=== PATIENT | male | born 1950 | race Caucasian/White ===

== ENCOUNTER 2019-07-01 07:58 | Day surgery (SDC) | payer MEDICARE ==
[~2019-07-01] VITALS: Ht 170.2 cm; Wt 81.6 kg
[~2019-07-01 07:58] MED LIST: ADAL40PEN SC; ALLO300 PO; AMLO10 PO; ASPI81CH PO; ATOR10 PO; ATOR40TA PO; Amlodipine Besyl5 MG PO; Aspirin EC81 MG PO; CARV25 PO; CENTRUM SILVER1 EAC4 PO; ETAN50I SC; FLAX OIL1000 MG PO; FURO40 PO; Ferrous Sulfat325 M2 PO; LISI20 PO; Labetalol HCl300 MG PO; PRED5 PO; Prilosec Otc20 MG PO; SODBIC650 PO; SPIR25 PO; TURMERIC500 M2 PO; VITAMIN D-32000 UNIT PO; Vitamin D2000 UNIT PO; ZESTRIL40 MG PO; ZYRTEC10 M1 PO
--- NOTE | 2019-07-01 10:37 | NUR ---
07/01/19 Paige Atkins USED.
--- NOTE | 2019-07-01 11:24 | NUR ---
07/01/19 1124 Paige Rodriguez PT. GROGGY. PT. ENC. TO TAKE DEEP BREATHS. PT VERBALIZES HAVING A LITTLE SORE THROAT. PT. INSTRUCTED THAT HE MAY HAVE A SORE THROAT FOR A DAY OR TWO & IF BOTHERSOME TO EAT SOFT FOODS OTHERWISE EAT & DRINK WHAT HE WANTS. PT. DRINKING CRANBERRY JUICE. PT. DENIES ANY OTHER PAIN. PT. STATES "SORE ASS." PER PT. WAS C/O SORE BOTTOM ON HIS WAY IN TO [facility].
--- NOTE | 2019-07-01 13:29 | NUR ---
07/01/19 1329 Paige Rodriguez [id number] ML GARY IN PREOP.
== END 2019-07-01 11:45 | disposition home or self-care (01) ==
LOC: ORSCSDS 07:58
PROVIDERS: Surgery
PROC: 0DBH8ZX Excision of Cecum, Via Natural or Artificial Opening Endoscopic, Diagnostic (ICD-10-PCS; principal; 2019-07-01 09:15)
PROC: 0DB68ZX Excision of Stomach, Via Natural or Artificial Opening Endoscopic, Diagnostic (ICD-10-PCS; principal; 2019-07-01 09:15)
PROC: 0DBL8ZX Excision of Transverse Colon, Via Natural or Artificial Opening Endoscopic, Diagnostic (ICD-10-PCS; principal; 2019-07-01 09:15)
PROC: 0DBP8ZX Excision of Rectum, Via Natural or Artificial Opening Endoscopic, Diagnostic (ICD-10-PCS; principal; 2019-07-01 09:15)
PROC: 0DB58ZX Excision of Esophagus, Via Natural or Artificial Opening Endoscopic, Diagnostic (ICD-10-PCS; principal; 2019-07-01 09:15)
PROC: 0DBK8ZX Excision of Ascending Colon, Via Natural or Artificial Opening Endoscopic, Diagnostic (ICD-10-PCS; principal; 2019-07-01 09:15)
DX: K21.9 Gastro-esophageal reflux disease without esophagitis (principal); Z86.010 Personal history of colon polyps; K44.9 Diaphragmatic hernia without obstruction or gangrene; K31.7 Polyp of stomach and duodenum; Z12.11 Encounter for screening for malignant neoplasm of colon; D12.0 Benign neoplasm of cecum; D12.2 Benign neoplasm of ascending colon; D12.3 Benign neoplasm of transverse colon; D12.8 Benign neoplasm of rectum; K57.30 Diverticulosis of large intestine without perforation or abscess without bleeding; E78.5 Hyperlipidemia, unspecified; Z79.899 Other long term (current) drug therapy; I12.9 Hypertensive chronic kidney disease with stage 1 through stage 4 chronic kidney disease, or unspecified chronic kidney disease; N18.4 Chronic kidney disease, stage 4 (severe)
CPT/HCPCS: 88305; 88342; J2704; J7120

== ENCOUNTER 2020-03-17 06:07 | Day surgery (SDC) | payer MEDICARE ==
[~2020-03-17] VITALS: Ht 175.3 cm; Wt 75.0 kg
[2020-03-17] MEDS ORDERED: CARV25 PO (06:41)
--- NOTE | 2020-03-17 07:22 | NUR ---
Ambulatory in Day Surgery. Surgical site prepped with 2% Chlorhexidine cloth wipe. Lungs clear T/O to Auscultation. History, Chart, Medications and Allergies reviewed before start of procedure.Patient confirms NPO status and agrees with scheduled surgery. Pre-Op teaching done. Pt verbalizes understanding. Patient States Post-Procedure ride home has been arranged.
--- NOTE | 2020-03-17 13:04 | NUR ---
PT ARRIVED TO UNIT AT APROX 1220 FROM PACU. PT AWAKENS TO VERBAL STIMULI BUT QUICKLEY FALLS BACK ASLEEP. LAP SITES X'S 5 C/D/I. APPEARS TO BE RESTING COMFORTABLY AT THIS TIME.
--- NOTE | 2020-03-17 18:35 | NUR ---
SHIFT SUMMARY PT POD 0 LAP HIATAL HERNIA REPAIR. 5 LAP SITES C/D/I DERMABONDED OPEN TO AIR. PAIN MGD PER EMAR. HTN-HOPITALIST MANAGING PER EMAR. ADVANCED TO ICE CHIPS FOR NOC.
[2020-03-18 04:07] LABS: Hematocrit 37.8 % (37.0-53.0); Hemoglobin 12.3 g/dL (13.5-17.5)
[2020-03-18 04:24] LABS: Albumin, Blood 3.3 g/dL (3.4-5.0); Anion Gap 11 mmol/L (6-16); Blood Urea Nitrogen 37 mg/dL (8-24); Bun/Creatinine Ratio 15.5 (12.0-20.0); CO2, Blood 18 mmol/L (21-32); Calcium, Blood 8.9 mg/dL (8.5-10.1); Chloride, Blood 109 mmol/L (98-108); Creatinine, Blood 2.38 mg/dL (0.60-1.20); Glomerular Filtration Rate 29 (60-); Glucose, Blood 97 mg/dL (70-99); Phosphorus, Blood 3.5 mg/dL (2.5-4.9); Potassium, Blood 4.3 mmol/L (3.5-5.5); Sodium, Blood 138 mmol/L (136-145)
--- NOTE | 2020-03-18 05:06 | NUR ---
PATIENT HAS BEEN UNABLE TO GET ANY SLEEP TONIGHT DUE TO THE FREQUENCY OF VOIDING. HE IS UP TO [facility] INDEPENDENTLY. PATIENT HAS NO COMPLAINTS OF ACUTE ABDOMINAL PAIN. HE DOES HAVE CHRONIC ARTHRITIS PAIN THAT HE DOES NOT WISH TO BE MEDICATED FOR. HIS LUNGS ARE CLEAR ON ROOM. PT WITH ELEVATED BLOOD PRESSURE THIS AM. HE IS NOW UP TO A RECLINER FOR COMFORT. 5 LAP SITES ARE CLEAR AND FREE OF BLEEDING. NO REPORT OF PASSING GAS. NO ACUTE CHANGES. CALL LIGHT IN REACH AND USED APPROPRIATELE.
[2020-03-18] MEDS ORDERED: Norco 5-325 Ta1 EACH PO (12:06)
--- NOTE | 2020-03-18 12:37 | NUR ---
DISCHARGE PT DISCHARGED [facility] FROM UNIT AT APROX 1230. PT GIVEN WRITTEN AND VERBAL DISCHARGE INSTRUCTIONS AND VERBALIZED UNDERSTANDING OF THESE INSTRUCTIONS. IV REMOVED, PT TOLERATED WELL. WRITTEN RX FOR PAIN MEDICATION GIVEN TO PT. WHEELCHAIR TO CAR.
== END 2020-03-18 12:33 | disposition home or self-care (01) ==
LOC: ORSCMMR 06:07 → SURS 12:27 → ORSCMMR 13:00 → SURS 03-18 12:33 → ORSCMMR 03-18 12:33
PROVIDERS: Surgery
PROC: 0DV44ZZ Restriction of Esophagogastric Junction, Percutaneous Endoscopic Approach (ICD-10-PCS; principal; 2020-03-17 07:30)
DX: K44.9 Diaphragmatic hernia without obstruction or gangrene (principal); I10 Essential (primary) hypertension; Z79.899 Other long term (current) drug therapy
CPT/HCPCS: 36415; 80069; 85014; 85018; J0330; J0360; J0690; J1644; J2250; J2370; J2405; J2704; J2710; J3010; J3480; J7030

== ENCOUNTER 2020-12-13 08:07 | Day surgery (SDC) | payer MEDICARE ==
[~2020-12-13] VITALS: Ht 175.3 cm; Wt 73.6 kg
[~2020-12-13 08:07] MED LIST changes: +Norco 5-325 Ta1 EACH PO
--- NOTE | 2020-12-13 08:50 | NUR ---
Ambulatory in Day Surgery History, Chart, Medications and Allergies reviewed before start of procedure. Lungs clear T/O to Auscultation. Patient confirms NPO status and agrees with scheduled surgery. Patient reports completing Chlorhexadine shower X2 prior to admission to hospital. PT REPORTS "LABILE BP", HX OF HTN PRIOR TO SURGERIES, SAME PREVIOUS VISITS.
--- NOTE | 2020-12-13 12:31 | NUR ---
PT ABVD SOFT, SLIGHTLY TENDER, INCISION SITE AT UMBILICUS. DERMABOND, NO OOZING NOTED. PT DECLINES PAIN MEDICATION. ALERT AND ORIENTED, TOLERATING PO INTAKE WITH ICE CHIPS. DECLINES FLUIDS OR FOOD.
--- NOTE | 2020-12-13 12:55 | NUR ---
PT ABLE TO DRESS WITH MINIMAL ASSISTANCE. IV DC'D, DRESSING APPLIED. RIDE HOME OUTSIDE WAITING.
== END 2020-12-13 22:57 | disposition home or self-care (01) ==
LOC: ORSCMMR 08:07 → ORD 09:15 → ORSCMMR 09:15
PROVIDERS: Surgery
PROC: 0WUF0JZ Supplement Abdominal Wall with Synthetic Substitute, Open Approach (ICD-10-PCS; principal; 2020-12-13 10:00)
DX: K43.2 Incisional hernia without obstruction or gangrene (principal); E78.5 Hyperlipidemia, unspecified; I12.9 Hypertensive chronic kidney disease with stage 1 through stage 4 chronic kidney disease, or unspecified chronic kidney disease; N18.9 Chronic kidney disease, unspecified; M06.9 Rheumatoid arthritis, unspecified; N25.81 Secondary hyperparathyroidism of renal origin; L40.50 Arthropathic psoriasis, unspecified; Z79.899 Other long term (current) drug therapy
CPT/HCPCS: C1781; J0690; J1100; J2250; J2370; J2405; J2704; J2710; J3010; J7120

== ENCOUNTER → 2021-01-04 | Outpatient (CLI) | payer MEDICARE ==
[2021-01-04 14:21] LABS: Creatinine, Urine Random 50.5 mg/dL (27.00-270.00); Protein, Urine Random 59.3 mg/dL (0.0-11.9)
== END | disposition home or self-care (01) ==
LOC: LAB 08:58 → LAB SHORT 08:58
PROVIDERS: Internal Medicine
DX: N18.4 Chronic kidney disease, stage 4 (severe) (principal); E55.9 Vitamin D deficiency, unspecified
CPT/HCPCS: 82570; 84156

== ENCOUNTER 2021-09-29 07:01 | Day surgery (SDC) | payer MEDICARE ==
[~2021-09-29] VITALS: Ht 170.2 cm; Wt 74.1 kg
[~2021-09-29 07:01] MED LIST changes: +AMLO5 PO; +Aspir 8181 MG PO; +CLOBETASOL EMOL15 G1 TOP; +HYDCHL25 PO
--- NOTE | 2021-09-29 08:08 | NUR ---
History, Chart, Medications and Allergies reviewed before start of procedure. Lungs clear T/O to Auscultation. Patient confirms NPO status and agrees with scheduled surgery. Pre-Op teaching done. Pt verbalizes understanding. Patient States Post-Procedure ride home has been arranged. Patient states colon prep results clear.
--- NOTE | 2021-09-29 09:03 | NUR ---
RECIEVED PATIENT AND REPORT VSS. GIVEN JUICE TO DRINK AND GAVE COFFEE TO DRINK
--- NOTE | 2021-09-29 09:23 | NUR ---
Discharge instructions reviewed with patient. Patient verbalizes understanding. Copy given to patient to take home. Patient States Post-Procedure ride home has been arranged. Discharged via wheelchair to private car for ride home.
--- NOTE | 2021-09-29 14:29 | NUR ---
09/29/21 1429 Suad Rubalcava History, Chart, Medications and Allergies reviewed before start of procedure. Patient confirms NPO status and agrees with scheduled surgery. 3-LEAD EKG REVIEWED WITH PHYSICIAN PRIOR TO START OF PROCEDURE. MONITOR INTACT WITH CONTINUOUS PULSE OXIMETRY AND INTERMITTENT BP. PATIENT DETERMINED TO BE ASA APPROPRIATE FOR PROPOFOL SEDATION PRIOR TO START OF PROCEDURE BY .
== END 2021-09-29 09:25 | disposition home or self-care (01) ==
LOC: ORSCMMR 07:01 → ORSCSDS 08:00 → ORSCMMR 09:25 → ORSCSDS 13:45 → ORSCMMR 23:06
PROVIDERS: Surgery
PROC: 0DBK8ZX Excision of Ascending Colon, Via Natural or Artificial Opening Endoscopic, Diagnostic (ICD-10-PCS; principal; 2021-09-29 08:00)
PROC: 0DBL8ZX Excision of Transverse Colon, Via Natural or Artificial Opening Endoscopic, Diagnostic (ICD-10-PCS; principal; 2021-09-29 08:00)
DX: Z12.11 Encounter for screening for malignant neoplasm of colon (principal); Z86.010 Personal history of colon polyps; D12.2 Benign neoplasm of ascending colon; D12.3 Benign neoplasm of transverse colon; K57.30 Diverticulosis of large intestine without perforation or abscess without bleeding; D64.9 Anemia, unspecified; E78.5 Hyperlipidemia, unspecified; E55.9 Vitamin D deficiency, unspecified; Z79.82 Long term (current) use of aspirin; Z79.899 Other long term (current) drug therapy
CPT/HCPCS: 88305; J2250; J2704; J3010; J7120

== ENCOUNTER → 2021-11-11 | Outpatient (CLI) | payer MEDICARE ==
[2021-11-11 10:09] LABS: Source, Urine Clean Catch
[2021-11-11 10:57] LABS: Appearance, Urine Clear (Clear); Bilirubin, Urine Neg (Neg); Blood, Urine Neg (Neg); Color, Urine Yellow (P-Yellow); Glucose Qualitative, Urine Neg (Neg); Ketones, Urine Neg (Neg); Leukocyte Esterase, Urine Neg (Neg); Nitrite, Urine Neg (Neg); Protein, Urine 2+ (Neg); Specific Gravity, Urine 1.015 (1.003-1.022); Urobilinogen, Urine NORM (Normal)
[2021-11-11 11:09] LABS: Creatinine, Urine Random 53.8 mg/dL (27.00-270.00); Protein, Urine Random 38.2 mg/dL (0.0-11.9); Protein/Creat Ratio, Ur Random 0.7
[2021-11-11 11:32] LABS: Bacteria Few /hpf; Red Blood Cells, Urine 0-2 /hpf (0-2); Squamous Epithelial Cells Rare /hpf (Few); White Blood Cells, Urine 0-2 /hpf (0-5)
== END ==
LOC: LAB SHORT 10:06
PROVIDERS: Internal Medicine Nephrology
DX: N18.4 Chronic kidney disease, stage 4 (severe) (principal)
CPT/HCPCS: 81001; 82570; 84156

== ENCOUNTER → 2022-01-06 | Outpatient (CLI) | payer MEDICARE ==
[2022-01-06 11:07] LABS: Creatinine, Urine Random 50.3 mg/dL (27.00-270.00); Protein, Urine Random 37.3 mg/dL (0.0-11.9); Protein/Creat Ratio, Ur Random 0.7
== END ==
LOC: LAB SHORT 09:15
PROVIDERS: Internal Medicine Nephrology
DX: N18.4 Chronic kidney disease, stage 4 (severe) (principal); Z79.82 Long term (current) use of aspirin
CPT/HCPCS: 82570; 84156

== ENCOUNTER 2022-09-01 07:47 | Inpatient (IN) | payer MEDICARE ==
[~2022-09-01] VITALS: Ht 175.3 cm; Wt 70.5 kg
[2022-09-01 08:39] LABS: BASOPHILS ABSOLUTE AUTO 0.04 K/mm3 (0.00-0.23); BASOPHILS PERCENT AUTO 1 % (0-2); EOSINOPHILS ABSOLUTE AUTO 0.19 K/mm3 (0.00-0.68); EOSINOPHILS PERCENT AUTO 3 % (0-6); Hematocrit 34.8 % (37.0-53.0); Hemoglobin 12.8 g/dL (13.5-17.5); IMMATURE GRAN ABSOLUTE AUTO 0.03 K/mm3 (0.00-0.10); IMMATURE GRAN PERCENT AUTO 0 % (0-1); LYMPHOCYTES ABSOLUTE AUTO 1.23 K/mm3 (0.84-5.20); LYMPHOCYTES PERCENT AUTO 17 % (21-46); MONOCYTES ABSOLUTE AUTO 0.85 K/mm3 (0.16-1.47); MONOCYTES PERCENT AUTO 12 % (4-13); Mean Corpuscular HGB Conc 36.8 g/dL (31.5-36.5); Mean Corpuscular Volume 87 fL (80-100); Mean Platelet Volume 12.2 fL (9.1-12.4); NEUTROPHILS ABSOLUTE AUTO 5.05 K/mm3 (1.96-9.15); NEUTROPHILS PERCENT AUTO 68 % (41-73); Platelet Count 191 K/mm3 (150-400); RDW Coefficient Variation 13.3 % (11.7-14.2); RDW Standard Deviation 42.2 fL (35.1-46.3); White Blood Cell Count 7.39 K/mm3 (4.00-11.30)
[2022-09-01 09:00] LABS: Albumin, Blood 3.4 g/dL (3.4-5.0); Bilirubin, Total 0.7 mg/dL (0.1-1.0); Bun/Creatinine Ratio 13.5 (12.0-20.0); Calcium, Blood 8.9 mg/dL (8.5-10.1); Creatinine, Blood 2.07 mg/dL (0.60-1.20); Globulin, Blood 3.4 g/dL (2.2-4.0); Potassium, Blood 4.6 mmol/L (3.5-5.5); Total Protein, Blood 6.8 g/dL (6.4-8.2)
[2022-09-01] MEDS ORDERED: ALLO300 PO (09:51)
[2022-09-01] MEDS ORDERED: AMLO10 PO (09:53)
[2022-09-01] MEDS ORDERED: ASPIR 8181 M1 PO (09:54)
[2022-09-01] MEDS ORDERED: ATORVASTATIN CA80 M1 PO (09:55)
[2022-09-01] MEDS ORDERED: COREG25 MG PO (09:56)
[2022-09-01] MEDS ORDERED: ADALAT CC30 M1 PO (09:58)
--- NOTE | 2022-09-01 14:07 | NUR ---
ASSUMED CARE: PT ARRIVED TO ROOM VIA WHEEL CHAIR BY ED STAFF. SKIN ASSESSMENT DONE WITH BUDDY PRIDE. PT DECLINED UNDERWEAR REMOVED BUT WAS ABLE TO CHECK GROIN AND COCCYX. PT REQUESTED TO KEEP HOME CLOTHES ON. NSR ON TELE WITH HR IN 70S. PT AWARE OF DR CONLEY'S ORDER FOR FLUID RESTRICTION. DISCUSSED WITH MECHANICAL PLANNER URINE SAMPLE AND 24 HOUR URINE ORDERS. CALL LIGHT IN REACH. PT AWARE TO CALL FOR ASSISTANCE. NO ACUTE NEEDS AT THIS TIME.
--- NOTE | 2022-09-01 18:24 | NUR ---
SHIFT SUMMARY: PT VOIDED ONCE THIS SHIFT SINCE ARRIVAL FROM THE ED. 24 HOUR URINE ORDERED FOR PT WITH SIGNS IN PLACE TO PREVENT DUMPING OF SAMPLE. CALL TO DR NARVAEZ FOR MEDICATION FOR HEART BURN, TYLENOL AND SLEEP AID. PT GETTING SODIUM CHECKED EVERY [address] CONLEY AWARE OF LAST SODIUM AND GAVE STANDING ORDER ON HOW TO ADJUST NS INFUSION. NO ACUTE NEEDS OR CONCERNS AT THIS TIME.
[2022-09-02 05:42] LABS: BASOPHILS ABSOLUTE AUTO 0.02 K/mm3 (0.00-0.23); BASOPHILS PERCENT AUTO 0 % (0-2); EOSINOPHILS ABSOLUTE AUTO 0.13 K/mm3 (0.00-0.68); EOSINOPHILS PERCENT AUTO 2 % (0-6); Hematocrit 31.3 % (37.0-53.0); Hemoglobin 11.3 g/dL (13.5-17.5); IMMATURE GRAN ABSOLUTE AUTO 0.03 K/mm3 (0.00-0.10); IMMATURE GRAN PERCENT AUTO 1 % (0-1); LYMPHOCYTES ABSOLUTE AUTO 1.06 K/mm3 (0.84-5.20); LYMPHOCYTES PERCENT AUTO 20 % (21-46); MONOCYTES ABSOLUTE AUTO 0.71 K/mm3 (0.16-1.47); MONOCYTES PERCENT AUTO 13 % (4-13); Mean Corpuscular HGB 32.1 pg (26.0-34.0); Mean Corpuscular HGB Conc 36.1 g/dL (31.5-36.5); Mean Corpuscular Volume 89 fL (80-100); Mean Platelet Volume 11.6 fL (9.1-12.4); NEUTROPHILS ABSOLUTE AUTO 3.49 K/mm3 (1.96-9.15); NEUTROPHILS PERCENT AUTO 64 % (41-73); Platelet Count 105 K/mm3 (150-400); RDW Coefficient Variation 13.3 % (11.7-14.2); RDW Standard Deviation 43.6 fL (35.1-46.3); Red Blood Cell Count 3.52 M/mm3 (4.30-5.90); White Blood Cell Count 5.44 K/mm3 (4.00-11.30)
[2022-09-02 06:18] LABS: Bun/Creatinine Ratio 14.9 (12.0-20.0); Calcium, Blood 8.7 mg/dL (8.5-10.1); Creatinine, Blood 2.21 mg/dL (0.60-1.20); Potassium, Blood 4.1 mmol/L (3.5-5.5)
--- NOTE | 2022-09-02 07:25 | NUR ---
SHIFT SUMMARY; PT WITH NO ACUTE CHANGES OVERNIGHT. PT REMAINED ON 1000ML FLUID RESTRICTION. 24 HOUR URINE SAMPLE IS STILL TAKING PLACE UNTIL 1632 TODAY, THE ORANGE CLLECTION URINAL REMAINS IN PLACE IN THE PTS BATHROOM ON ICE. PTS SODIUM IS UP TO 121 THIS AM. PT CURRENTLY RESTING IN BED WITH THE BED IN THE LOWEST POSITION AND THE CALL LIGHT AT THE PTS BEDSIDE.
--- NOTE | 2022-09-02 17:20 | NUR ---
SUMMARY NO ACUTE CHANGES T/O SHIFT. PT GETTING UP INDEPENDENTLY TO RESTROOM AND AMBULATING IN ROOM FROM BED TO CHAIR. 24 HR URINE COLLECTED PER ORDERS. CALL LIGHT IN REACH.
[2022-09-02 18:03] LABS: Creatinine Urine 35.1 mg/dL (27.00-270.00)
--- NOTE | 2022-09-03 04:27 | NUR ---
SHIFT SUMMARY; NO ACUTE MEDICAL CHANGES THROUGHOUT THE NIGHT. THE PT REMAINS ON A 1000ML FLUID RESTRICTION. THE PT REMAINS INDEPENDENT IN THE ROOM. TELE REMAINS IN PLACE, THE PT HAS BEEN NSR IN THE 60'S THROUGHOUT THE NIGHT. THE PT DOES COMPLAIN OF SOME STIFFNESS R/T GOUT AND ARTHRITIS. PT ATTRIBUTES IT TO SLEEPING IN A HOSPITAL BED RATHER THAN HIS HOME BED/RECLINER. THE PT IS CURRENTLY RESTING IN BED WITH THE BED IN THE LOWEST POSITION AND THE CALL LIGHT AT BEDSIDE.
[2022-09-03 06:48] LABS: Bun/Creatinine Ratio 15.1 (12.0-20.0); Calcium, Blood 8.8 mg/dL (8.5-10.1); Creatinine, Blood 2.39 mg/dL (0.60-1.20); Potassium, Blood 3.9 mmol/L (3.5-5.5)
[2022-09-03] MEDS ORDERED: UREA PO (15:31)
--- NOTE | 2022-09-03 15:56 | NUR ---
DISCHARGE SUMMARY PATIENT ALERT AND ORIENTED AND ANXIOUS THROUGHOUT SHIFT. TOLERATING RENAL DIET AND FLUID RESTRICTION OF 1000 MLS. INDEPENDENT IN ROOM. ASAEL ON TELE IN THE 60S. HIGH BP CONTROLLED WITH MEDS. SEEN BY SUSANNAH SULLIVAN AND NEPHROLOGY. SODIUM CONTINUES TO BE LOW BUT STABLE. DISCHARGE ORDER GIVEN. DISCHARGE EDUCATION GIVEN ON NEW MEDS, DIET, FOLLOW UP LABS, AND FOLLOW UP APPTS. IV DC'D WNL. PATIENT LEFT UNIT AT 1600 VIA WHEELCHAIR FOR HOME WITH FRIEND.
== END 2022-09-03 16:01 | disposition home or self-care (01) | DRG 641 ==
LOC: ER 07:47 → MEDS 09:47
PROVIDERS: Emergency Medicine; Internal Medicine Nephrology; ADMIT Internal Medicine
DX: E87.1 Hypo-osmolality and hyponatremia (principal); I50.30 Unspecified diastolic (congestive) heart failure; I13.0 Hypertensive heart and chronic kidney disease with heart failure and stage 1 through stage 4 chronic kidney disease, or unspecified chronic kidney disease; I42.0 Dilated cardiomyopathy; N18.4 Chronic kidney disease, stage 4 (severe); D63.1 Anemia in chronic kidney disease; N40.0 Benign prostatic hyperplasia without lower urinary tract symptoms; I65.29 Occlusion and stenosis of unspecified carotid artery; M10.9 Gout, unspecified; L40.50 Arthropathic psoriasis, unspecified; E78.00 Pure hypercholesterolemia, unspecified; Z98.890 Other specified postprocedural states; Z79.899 Other long term (current) drug therapy; Z88.8 Allergy status to other drugs, medicaments and biological substances; Z79.82 Long term (current) use of aspirin; Z79.811 Long term (current) use of aromatase inhibitors; Z79.02 Long term (current) use of antithrombotics/antiplatelets; Z98.49 Cataract extraction status, unspecified eye; Z92.25 Personal history of immunosuppression therapy
CPT/HCPCS: 36415; 80048; 80053; 81050; 82570; 83935; 84295; 84300; 84443; 84540; 85025; 93005; 93010; 99285-25; A9270; J1644; J7030; J7040

== ENCOUNTER 2023-03-22 09:37 | Inpatient (IN) | payer MEDICARE ==
[~2023-03-22] VITALS: Ht 175.3 cm; Wt 69.3 kg
[~2023-03-22 09:37] MED LIST changes: -ADAL40PEN SC; +ADALAT CC30 M1 PO; +ASPIR 8181 M1 PO; +ATORVASTATIN CA80 M1 PO; +COREG25 MG PO; +HUMIRA40 MG/0.2 SC; +THERA-D2000 UNIT PO; +UREA PO; -VITAMIN D-32000 UNIT PO
[2023-03-22 10:47] LABS: Albumin, Blood 2.9 g/dL (3.4-5.0); Albumin/Globulin Ratio 0.7 (0.8-1.8); Bilirubin, Total 0.4 mg/dL (0.1-1.0); Bun/Creatinine Ratio 21.8 (12.0-20.0); Calcium, Blood 9.5 mg/dL (8.5-10.1); Creatinine, Blood 3.67 mg/dL (0.60-1.20); Potassium, Blood 4.7 mmol/L (3.5-5.5); Total Protein, Blood 6.9 g/dL (6.4-8.2)
[2023-03-22 10:59] LABS: Percent Saturation 4.7 % (20.0-50.0)
[2023-03-22 11:11] LABS: International Normalized Ratio 1.07; Prothrombin Time Results 11.2 Sec (9.7-11.5)
[2023-03-22 11:14] LABS: Base Excess Venous -6.3 mmol/L; Bicarbonate Venous 19.4 mmol/L (24.0-30.0); PCO2 Venous 38.4 mmHg (38-42); pH Blood Venous 7.32 (7.34-7.37)
[2023-03-22 11:42] LABS: BASOPHILS ABSOLUTE AUTO 0.04 K/mm3 (0.00-0.23); BASOPHILS PERCENT AUTO 0 % (0-2); EOSINOPHILS PERCENT AUTO 3 % (0-6); Hematocrit 21.9 % (37.0-53.0); Hemoglobin 7.1 g/dL (13.5-17.5); IMMATURE GRAN ABSOLUTE AUTO 0.03 K/mm3 (0.00-0.10); IMMATURE GRAN PERCENT AUTO 0 % (0-1); LYMPHOCYTES ABSOLUTE AUTO 1.48 K/mm3 (0.84-5.20); LYMPHOCYTES PERCENT AUTO 15 % (21-46); MONOCYTES ABSOLUTE AUTO 1.61 K/mm3 (0.16-1.47); MONOCYTES PERCENT AUTO 16 % (4-13); Mean Corpuscular HGB 30.9 pg (26.0-34.0); Mean Corpuscular HGB Conc 32.4 g/dL (31.5-36.5); Mean Corpuscular Volume 95 fL (80-100); NEUTROPHILS ABSOLUTE AUTO 6.66 K/mm3 (1.96-9.15); NEUTROPHILS PERCENT AUTO 66 % (41-73); Platelet Count 133 K/mm3 (150-400); RDW Coefficient Variation 14.5 % (11.7-14.2); White Blood Cell Count 10.12 K/mm3 (4.00-11.30)
[2023-03-22] MEDS ORDERED: ALLO300 PO (14:22)
[2023-03-22] MEDS ORDERED: CALC.25 PO (14:22)
[2023-03-22] MEDS ORDERED: BETASEPT118 M1 PO (14:23)
[2023-03-22 16:08] VITALS: BP 162/66
[2023-03-22 17:36] LABS: Hematocrit 27.3 % (37.0-53.0); Hemoglobin 9.2 g/dL (13.5-17.5)
[2023-03-22 18:40] LABS: Source, Urine Voided
--- NOTE | 2023-03-22 19:49 | NUR ---
LATE ENTRY PT ADMIT FROM ER. ONE PERSON ASSIST WITH WALKER TO THE BATHROOM. APPROPRIATE. ABLE TO EXPRESS NEEDS. PER MD, STAY ON CLEAR LIQUID DIET UNTIL FURTHER NOTICE. ALERT AND ORIENTED X4.
[2023-03-22 19:52] LABS: Bilirubin, Urine Neg (Neg); Blood, Urine 1+ (Neg); Color, Urine Yellow (P-Yellow); Glucose Qualitative, Urine Neg (Neg); Ketones, Urine Neg (Neg); Leukocyte Esterase, Urine Neg (Neg); Nitrite, Urine Neg (Neg); Protein, Urine 3+ (Neg); Specific Gravity, Urine 1.015 (1.003-1.022); Urobilinogen, Urine NORM (Normal)
[2023-03-22 20:17] LABS: Appearance, Urine Hazy (Clear)
[2023-03-22 20:19] LABS: Amorphous Light (0-Heavy); Bacteria Mod /hpf; Hyaline Casts 0-2 /lpf (0-2); Mucus Light (0-Heavy); Red Blood Cells, Urine 0-2 /hpf (0-2); Squamous Epithelial Cells Rare /hpf (Few); White Blood Cells, Urine 0-2 /hpf (0-5)
[2023-03-22 20:51] VITALS: BP 137/66
[2023-03-23] VITALS (21 sets, daily range): BP systolic 84–187; BP diastolic 53–77
[2023-03-23 02:10] LABS: Albumin, Blood 2.7 g/dL (3.4-5.0); Albumin/Globulin Ratio 0.8 (0.8-1.8); Bilirubin, Total 0.8 mg/dL (0.1-1.0); Bun/Creatinine Ratio 21.2 (12.0-20.0); Calcium, Blood 8.9 mg/dL (8.5-10.1); Creatinine, Blood 3.54 mg/dL (0.60-1.20); Globulin, Blood 3.5 g/dL (2.2-4.0); Potassium, Blood 4.2 mmol/L (3.5-5.5); Total Protein, Blood 6.2 g/dL (6.4-8.2)
[2023-03-23 02:14] LABS: BASOPHILS ABSOLUTE AUTO 0.04 K/mm3 (0.00-0.23); BASOPHILS PERCENT AUTO 0 % (0-2); EOSINOPHILS ABSOLUTE AUTO 0.29 K/mm3 (0.00-0.68); EOSINOPHILS PERCENT AUTO 3 % (0-6); Hematocrit 26.2 % (37.0-53.0); Hemoglobin 8.9 g/dL (13.5-17.5); IMMATURE GRAN ABSOLUTE AUTO 0.09 K/mm3 (0.00-0.10); IMMATURE GRAN PERCENT AUTO 1 % (0-1); LYMPHOCYTES ABSOLUTE AUTO 1.45 K/mm3 (0.84-5.20); LYMPHOCYTES PERCENT AUTO 15 % (21-46); MONOCYTES PERCENT AUTO 17 % (4-13); Mean Corpuscular HGB 31.2 pg (26.0-34.0); Mean Corpuscular Volume 92 fL (80-100); Mean Platelet Volume 12.9 fL (9.1-12.4); NEUTROPHILS PERCENT AUTO 64 % (41-73); NRBC ABSOLUTE 0.02 K/mm3 (0.00-0.02); NRBC Auto 0.2 /100 WBC (0.0-0.2); Platelet Count 137 K/mm3 (150-400); RDW Coefficient Variation 13.9 % (11.7-14.2); RDW Standard Deviation 46.9 fL (35.1-46.3); Red Blood Cell Count 2.85 M/mm3 (4.30-5.90); White Blood Cell Count 9.87 K/mm3 (4.00-11.30)
--- NOTE | 2023-03-23 04:20 | NUR ---
SHIFT SUMMARY ADMITTED FOR UPPER GI BLEED. FULL CODE. UPPER ENDOSCOPY PLANNED FOR THIS AFTERNOON. GI CONSULT IS DR. CLEMONS. PT HAS BEEN ALLOWED WATER ONLY, ORDERED. AT 1200 HOURS HE WILL BE NPO FOR PROCEDURE. HE RECEIVED ONE UNIT OF PRBC'S. HE IS A&O X4, ON RA, CONTINENT, INDEPENDENT W/FWW - BRP. BLOOD CX'S HAVE BEEN COLLECTED, AWAITING RESULTS. HE REPORTED TARRY STOOLS AT HOME. ABDOMINAL ULTRASOUND PERFORMED THIS SHIFT. HX: CKD 4. MX FOR ANEMIA. IV IRON INFUSED THIS SHIFT.
[2023-03-23 09:22] LABS: Hematocrit 27.4 % (37.0-53.0); Hemoglobin 9.3 g/dL (13.5-17.5)
--- NOTE | 2023-03-23 15:19 | NUR ---
PT BROUGHT FROM FLOOR TO DAY SURGERY FOR PROCEDURE.
--- NOTE | 2023-03-23 15:31 | NUR ---
03/23/23 1531 Lexie Rajput History, Chart, Medications and Allergies reviewed before start of procedure. 3-LEAD EKG REVIEWED WITH PHYSICIAN PRIOR TO START OF PROCEDURE. O2 VIA POM AT 10L INTACT THROUGHOUT SEDATION/PROCEDURE. MONITOR INTACT WITH CONTINUOUS PULSE OXIMETRY, CONTINUOUS END TITAL CO2, AND INTERMITTENT BLOOD PRESSURE. PATIENT DETERMINED TO BE ASA APPROPRIATE FOR PROPOFOL SEDATION PRIOR TO START OF PROCEDURE BY .
--- NOTE | 2023-03-23 15:44 | NUR ---
PT HAS 20G IV TO RIGHT AC THAT FLUSHES WELL AND FLOWS TO GRAVITY.
[2023-03-23 17:41] LABS: Hematocrit 28.8 % (37.0-53.0); Hemoglobin 9.7 g/dL (13.5-17.5)
--- NOTE | 2023-03-23 20:10 | NUR ---
SHIFT SUMMARY PT IS ALERT AND ORIENTED X4, INDEPENDENT IN THE ROOM, R/A, EGD TODAY. RESULTS NEGATIVE. NO ACUTE CHANGES THIS SHIFT. NEPHRO MD AT PT BEDSIDE TO DISCUSS KIDNEY FUNCTION. PLAN IS TO DISCHARGE TOMORROW AFTER LAB RESULTS.
--- NOTE | 2023-03-24 04:26 | NUR ---
SHIFT SUMMARY 73 YR M ADMITTED ON 03/23/23 FOR POSSIBLE GI BLEED. FULL CODE. NO ACUTE CHANGES THIS SHIFT. PT IS A&O X 4 AND INDEPENDANT IN THE ROOM. HE STATES THAT HE IS GOING HOME IN THE A.M. BECAUSE HE DOES NOT WANT TO BE HERE. HE HAS BEEN PLEASANT AND COOPERATIVE WITH CARE. HE APPEARS TO HAVE SLEPT THROUGH THE NIGHT WITH THE DOOR TO HIS ROOM CLOSED AND HE DID NOT CALL FOR ASSISTANCE.
[2023-03-24 05:11] VITALS: BP 147/64
[2023-03-24 06:18] LABS: BASOPHILS ABSOLUTE AUTO 0.05 K/mm3 (0.00-0.23); BASOPHILS PERCENT AUTO 1 % (0-2); EOSINOPHILS ABSOLUTE AUTO 0.29 K/mm3 (0.00-0.68); EOSINOPHILS PERCENT AUTO 3 % (0-6); Hematocrit 27.5 % (37.0-53.0); Hemoglobin 9.3 g/dL (13.5-17.5); IMMATURE GRAN ABSOLUTE AUTO 0.06 K/mm3 (0.00-0.10); IMMATURE GRAN PERCENT AUTO 1 % (0-1); LYMPHOCYTES ABSOLUTE AUTO 1.43 K/mm3 (0.84-5.20); LYMPHOCYTES PERCENT AUTO 13 % (21-46); MONOCYTES ABSOLUTE AUTO 1.44 K/mm3 (0.16-1.47); MONOCYTES PERCENT AUTO 13 % (4-13); Mean Corpuscular HGB 31.2 pg (26.0-34.0); Mean Corpuscular HGB Conc 33.8 g/dL (31.5-36.5); Mean Corpuscular Volume 92 fL (80-100); Mean Platelet Volume 12.8 fL (9.1-12.4); NEUTROPHILS ABSOLUTE AUTO 7.82 K/mm3 (1.96-9.15); NEUTROPHILS PERCENT AUTO 71 % (41-73); Platelet Count 146 K/mm3 (150-400); RDW Standard Deviation 46.9 fL (35.1-46.3); Red Blood Cell Count 2.98 M/mm3 (4.30-5.90); White Blood Cell Count 11.09 K/mm3 (4.00-11.30)
[2023-03-24 06:39] LABS: Bun/Creatinine Ratio 19.3 (12.0-20.0); Calcium, Blood 8.9 mg/dL (8.5-10.1); Creatinine, Blood 3.93 mg/dL (0.60-1.20); Potassium, Blood 4.6 mmol/L (3.5-5.5)
[2023-03-24 07:17] VITALS: BP 106/64
[2023-03-24 08:40] VITALS: BP 135/66
--- NOTE | 2023-03-24 11:45 | NUR ---
PATIENT DECIDED TO LEAVE AMA AFTER PROVIDER STATED "I WILL GO SIGN YOUR DISCHARGE RIGHT NOW" MORE THAN 30 MINUTES AGO. SIGNED AMA FORM AND WAS TAKEN BY W/C DOWNSTAIRS TO MEET WHO IS DRIVING HIM HOME. DR. MATA NOTIFIED BY TELEPHONE.
--- NOTE | 2023-03-24 12:10 | NUR ---
PER DR. MATA'S REQUEST, THIS AUTHOR CALLED PATIENT TO NOTIFY HIM TO STOP TAKING HIS LISINOPRIL AND TO TO START TAKING OMEPRAZOLE 20 MG CAP DAILY. THIS MEDICATION IS OTC, RX NOT SENT TO PHARMACY. PT DID NOT ANSWER, LEFT VM. CALLED ALTERNATE NUMBER, SPOKE TO PATIENT'S , GAVE HER INFORMATION AND SHE VERBALIZED UNDERSTANDING.
== END 2023-03-24 11:47 | disposition left against medical advice (07) | DRG 812 ==
LOC: ER 09:37 → MEDS 09:38
PROVIDERS: Hospitalist; Student in an Organized Health Care Education/Training Program; ADMIT Internal Medicine
PROC: 0DJ08ZZ Inspection of Upper Intestinal Tract, Via Natural or Artificial Opening Endoscopic (ICD-10-PCS; 2023-03-23)
PROC: 30233N1 Transfusion of Nonautologous Red Blood Cells into Peripheral Vein, Percutaneous Approach (ICD-10-PCS; principal; 2023-03-24)
DX: D62 Acute posthemorrhagic anemia (principal); K92.2 Gastrointestinal hemorrhage, unspecified; E87.20 Acidosis, unspecified; N18.4 Chronic kidney disease, stage 4 (severe); N25.81 Secondary hyperparathyroidism of renal origin; N13.30 Unspecified hydronephrosis; I42.0 Dilated cardiomyopathy; E87.1 Hypo-osmolality and hyponatremia; I12.9 Hypertensive chronic kidney disease with stage 1 through stage 4 chronic kidney disease, or unspecified chronic kidney disease; D50.9 Iron deficiency anemia, unspecified; D69.6 Thrombocytopenia, unspecified; D63.1 Anemia in chronic kidney disease; K44.9 Diaphragmatic hernia without obstruction or gangrene; E78.00 Pure hypercholesterolemia, unspecified; L40.9 Psoriasis, unspecified; M10.9 Gout, unspecified; E55.9 Vitamin D deficiency, unspecified; N40.1 Benign prostatic hyperplasia with lower urinary tract symptoms; R33.9 Retention of urine, unspecified; M06.9 Rheumatoid arthritis, unspecified; M19.90 Unspecified osteoarthritis, unspecified site; K43.2 Incisional hernia without obstruction or gangrene; K76.0 Fatty (change of) liver, not elsewhere classified; H26.9 Unspecified cataract; R63.4 Abnormal weight loss; Z53.29 Procedure and treatment not carried out because of patient's decision for other reasons; Z68.22 Body mass index [BMI] 22.0-22.9, adult; Z86.73 Personal history of transient ischemic attack (TIA), and cerebral infarction without residual deficits; Z98.890 Other specified postprocedural states; Z79.82 Long term (current) use of aspirin; Z79.4 Long term (current) use of insulin; Z88.8 Allergy status to other drugs, medicaments and biological substances; Z79.811 Long term (current) use of aromatase inhibitors; Z79.899 Other long term (current) drug therapy; Z86.010 Personal history of colon polyps; Z98.61 Coronary angioplasty status
CPT/HCPCS: 36415; 36430; 76705; 76770; 80048; 80053; 81001; 82272; 82570; 82728; 82803; 83540; 83550; 83605; 84100; 84156; 85014; 85018; 85025; 85610; 85730; 86850; 86900; 86901; 86923; 87040; 87086; 96365; 96366; 96374; 96375; 96376; 99285-25; A9270; C9113; G0378; J2001; J2704; J2916; J7030; J7120; P9016

== ENCOUNTER → 2023-05-30 | Outpatient (CLI) | payer MEDICARE ==
[~2023-05-30] MED LIST changes: +BETASEPT118 M1 PO; +CALC.25 PO
[2023-05-30 16:35] LABS: Magnesium, Blood 1.4 mg/dL (1.6-2.4); Thyroid Stimulating Hormone 1.04 uIU/mL (0.360-4.800)
[2023-05-30 16:36] LABS: Albumin, Blood 3.6 g/dL (3.4-5.0); Albumin/Globulin Ratio 0.9 (0.8-1.8); Bilirubin, Total 0.5 mg/dL (0.1-1.0); Bun/Creatinine Ratio 17.6 (12.0-20.0); Calcium, Blood 9.7 mg/dL (8.5-10.1); Creatinine, Blood 3.06 mg/dL (0.60-1.20); Globulin, Blood 3.8 g/dL (2.2-4.0); Potassium, Blood 4.8 mmol/L (3.5-5.5); Total Protein, Blood 7.4 g/dL (6.4-8.2)
== END | disposition home or self-care (01) ==
LOC: LAB SHORT 10:02 → LAB 10:02
PROVIDERS: Physician Assistant
DX: N18.4 Chronic kidney disease, stage 4 (severe) (principal); R25.2 Cramp and spasm
CPT/HCPCS: 80053; 83735; 84443

== ENCOUNTER → 2023-09-26 | Outpatient (CLI) | payer MEDICARE ==
[2023-09-26 16:50] LABS: BASOPHILS ABSOLUTE AUTO 0.07 K/mm3 (0.00-0.23); BASOPHILS PERCENT AUTO 1 % (0-2); EOSINOPHILS ABSOLUTE AUTO 0.52 K/mm3 (0.00-0.68); EOSINOPHILS PERCENT AUTO 5 % (0-6); Hematocrit 33.6 % (37.0-53.0); Hemoglobin 11.1 g/dL (13.5-17.5); IMMATURE GRAN ABSOLUTE AUTO 0.04 K/mm3 (0.00-0.10); IMMATURE GRAN PERCENT AUTO 0 % (0-1); LYMPHOCYTES ABSOLUTE AUTO 1.78 K/mm3 (0.84-5.20); LYMPHOCYTES PERCENT AUTO 16 % (21-46); MONOCYTES ABSOLUTE AUTO 1.09 K/mm3 (0.16-1.47); MONOCYTES PERCENT AUTO 10 % (4-13); Mean Corpuscular HGB 32.3 pg (26.0-34.0); Mean Corpuscular Volume 98 fL (80-100); Mean Platelet Volume 12.6 fL (9.1-12.4); NEUTROPHILS ABSOLUTE AUTO 7.71 K/mm3 (1.96-9.15); NEUTROPHILS PERCENT AUTO 69 % (41-73); Platelet Count 203 K/mm3 (150-400); RDW Coefficient Variation 16.4 % (11.7-14.2); RDW Standard Deviation 59.3 fL (35.1-46.3); Red Blood Cell Count 3.44 M/mm3 (4.30-5.90); White Blood Cell Count 11.21 K/mm3 (4.00-11.30)
[2023-09-26 17:24] LABS: Bun/Creatinine Ratio 18.3 (12.0-20.0); Calcium, Blood 9.2 mg/dL (8.5-10.1); Creatinine, Blood 3.28 mg/dL (0.60-1.20); Magnesium, Blood 1.1 mg/dL (1.6-2.4); Potassium, Blood 4.5 mmol/L (3.5-5.5)
== END | disposition home or self-care (01) ==
LOC: LAB 14:59 → LAB SHORT 14:59
PROVIDERS: Chiropractor
DX: R19.7 Diarrhea, unspecified (principal)
CPT/HCPCS: 80048; 83735; 85025

== ENCOUNTER 2023-10-31 01:00 | Day surgery (SDC) | payer MEDICARE | END 2023-10-31 23:25 | disposition home or self-care (01) | LOC: WOUND 01:00 | DX: I87.2 Venous insufficiency (chronic) (peripheral) (principal); L97.312 Non-pressure chronic ulcer of right ankle with fat layer exposed; I12.9 Hypertensive chronic kidney disease with stage 1 through stage 4 chronic kidney disease, or unspecified chronic kidney disease; N18.4 Chronic kidney disease, stage 4 (severe); I73.9 Peripheral vascular disease, unspecified | CPT/HCPCS: G0463 ==

== ENCOUNTER 2023-11-09 01:25 | Day surgery (SDC) | payer MEDICARE | END 2023-11-09 22:54 | disposition home or self-care (01) | LOC: WOUND 01:25 | DX: S90.511A Abrasion, right ankle, initial encounter (principal); L97.312 Non-pressure chronic ulcer of right ankle with fat layer exposed; I10 Essential (primary) hypertension | CPT/HCPCS: A9270 ==

== ENCOUNTER 2023-11-15 04:49 | Day surgery (SDC) | payer MEDICARE | END 2023-11-15 23:06 | disposition home or self-care (01) | LOC: WOUND 04:49 | DX: S90.511A Abrasion, right ankle, initial encounter (principal); W19.XXXA Unspecified fall, initial encounter; L97.312 Non-pressure chronic ulcer of right ankle with fat layer exposed; I12.9 Hypertensive chronic kidney disease with stage 1 through stage 4 chronic kidney disease, or unspecified chronic kidney disease; N18.9 Chronic kidney disease, unspecified | CPT/HCPCS: G0463 ==

== ENCOUNTER 2023-11-23 01:31 | Day surgery (SDC) | payer MEDICARE | END 2023-11-23 22:58 | disposition home or self-care (01) | LOC: WOUND 01:31 | DX: L97.312 Non-pressure chronic ulcer of right ankle with fat layer exposed (principal); N18.9 Chronic kidney disease, unspecified; I12.9 Hypertensive chronic kidney disease with stage 1 through stage 4 chronic kidney disease, or unspecified chronic kidney disease | CPT/HCPCS: A6213; G0463 ==

== ENCOUNTER 2023-11-26 02:24 | Day surgery (SDC) | payer MEDICARE | END 2023-11-26 23:08 | disposition home or self-care (01) | LOC: WOUND 02:24 | DX: S90.511D Abrasion, right ankle, subsequent encounter (principal); L97.312 Non-pressure chronic ulcer of right ankle with fat layer exposed; I12.9 Hypertensive chronic kidney disease with stage 1 through stage 4 chronic kidney disease, or unspecified chronic kidney disease; N18.9 Chronic kidney disease, unspecified; X58.XXXD Exposure to other specified factors, subsequent encounter | CPT/HCPCS: A9270; G0463 ==

== ENCOUNTER 2023-12-05 00:08 | Day surgery (SDC) | payer MEDICARE ==
[2023-12-05] MEDS ORDERED: Lidocaine HCl 4% Cream 5 GM ONE (09:58)
== END 2023-12-05 22:45 | disposition home or self-care (01) ==
LOC: WOUND 00:08
DX: S90.511D Abrasion, right ankle, subsequent encounter (principal); N18.9 Chronic kidney disease, unspecified; L97.312 Non-pressure chronic ulcer of right ankle with fat layer exposed; I10 Essential (primary) hypertension; X58.XXXD Exposure to other specified factors, subsequent encounter
CPT/HCPCS: A6213; A9270; G0463

== ENCOUNTER 2023-12-12 05:26 | Day surgery (SDC) | payer MEDICARE | END 2023-12-12 23:12 | disposition home or self-care (01) | LOC: WOUND 05:26 | DX: S90.511D Abrasion, right ankle, subsequent encounter (principal); I12.9 Hypertensive chronic kidney disease with stage 1 through stage 4 chronic kidney disease, or unspecified chronic kidney disease; N18.9 Chronic kidney disease, unspecified; L97.312 Non-pressure chronic ulcer of right ankle with fat layer exposed; X58.XXXD Exposure to other specified factors, subsequent encounter | CPT/HCPCS: G0463 ==

== ENCOUNTER 2023-12-13 09:00 | Day surgery (SDC) | payer MEDICARE ==
[2023-12-13] VITALS (9 sets, daily range): BP systolic 97–194; BP diastolic 65–85
[~2023-12-13] VITALS: Ht 175.3 cm; Wt 65.0 kg
[2023-12-13] MEDS ORDERED: NS 250 ML IV ONE (09:53)
[2023-12-13] MEDS ORDERED: NS 1,000 ML IV ONE ×2 (09:53→10:17)
[2023-12-13] MEDS ORDERED: Heparin Sodium 1000 Units/ML 10ML MDV ONE (09:53)
[2023-12-13] MEDS ORDERED: Nitroglycerin 2 MG/20 ML BTL ONE (09:54)
[2023-12-13] MEDS ORDERED: Midazolam HCl 1MG / ML 2ML Vial ONE ×2 (10:17→10:42)
[2023-12-13] MEDS ORDERED: FentaNYL Citrate 50 MCG/ML 2 ML Injection ONE ×2 (10:17→10:42)
[2023-12-13] MEDS ORDERED: DiphenhydrAMINE HCl 50 MG/ML 1ML Vial ONE (10:55)
[2023-12-13] MEDS ORDERED: Verapamil HCL 2.5 MG/ML 2ML Injection ONE (11:01)
--- NOTE | 2023-12-13 13:35 | NUR ---
ASSUMED CARE OF PT. PT AWAKE AND ORIENTED, CONVERSING APPROPRIATELY; DENIES PAIN POST PROCEDURE. MONITOR SR 70'S, B/P 130/65, SPO2 97% RA. L GROIN: NO SWELLING/HEMATOMA, TEGAERM DRSG INTACT; ANGIO SEAL DEPLOYED, LLE: DOP X 2. L RADIAL SITE NO SWELLING/HEMATOMA, TR BAND IN PLACE, LUE: POSITIVE PLEUTH POST TR BAND PLACMEMENT-ACTIVELY RELEASING AIR.
--- NOTE | 2023-12-13 14:00 | NUR ---
TR BAND FULLY DEFLATED, NO S/S OF SWELLING/HEMATOMA.
--- NOTE | 2023-12-13 14:15 | NUR ---
L RADIAL SITE WITHOUT SWELLING/HEMATOMA, POST TR BAND DEFLATION.
--- NOTE | 2023-12-13 14:35 | NUR ---
PT AMB TO BATHROOM, GAIT STEADY, SITES UNCHANGED WITH ACTIVITY.
--- NOTE | 2023-12-13 14:45 | NUR ---
PT DRESSED SELF WITHOUT ISSUE, SITES UNCHANGED. TR BAND REMOVED, CLOTH DOT AND WRIST IMMOBILIZER PLACED; IV REMOVED-CANNULA INTACT.
--- NOTE | 2023-12-13 14:56 | NUR ---
PT RECEIVED DISCHARGE INSTRUCTIONS, MED LIST AND AFTER CARE INSTRUCTIONS; VERBALIZED GOOD UNDERSTANDING. PT LEFT FACILITY VIA W/C, CONDITION STABLE.
== END 2023-12-13 14:56 | disposition home or self-care (01) ==
LOC: MHTC 09:00
DX: I70.233 Atherosclerosis of native arteries of right leg with ulceration of ankle (principal); I70.222 Atherosclerosis of native arteries of extremities with rest pain, left leg; L97.319 Non-pressure chronic ulcer of right ankle with unspecified severity; I87.2 Venous insufficiency (chronic) (peripheral); I12.9 Hypertensive chronic kidney disease with stage 1 through stage 4 chronic kidney disease, or unspecified chronic kidney disease; N18.9 Chronic kidney disease, unspecified; E78.5 Hyperlipidemia, unspecified; Z88.8 Allergy status to other drugs, medicaments and biological substances; Z79.899 Other long term (current) drug therapy
CPT/HCPCS: 76937; 99152; 99153; C1769; C1887; C1894; J1200; J1644; J2250; J3010; J7030; J7050; Q9967

== ENCOUNTER 2023-12-19 02:05 | Day surgery (SDC) | payer MEDICARE | END 2023-12-19 23:05 | disposition home or self-care (01) | LOC: WOUND 02:05 | DX: S90.511D Abrasion, right ankle, subsequent encounter (principal); N18.9 Chronic kidney disease, unspecified; L97.312 Non-pressure chronic ulcer of right ankle with fat layer exposed; I10 Essential (primary) hypertension | CPT/HCPCS: A6213; G0463 ==

== ENCOUNTER 2024-01-30 02:16 | Day surgery (SDC) | payer MEDICARE | END 2024-01-30 23:35 | disposition home or self-care (01) | LOC: WOUND 02:16 | DX: L97.312 Non-pressure chronic ulcer of right ankle with fat layer exposed (principal); S90.511D Abrasion, right ankle, subsequent encounter; I12.9 Hypertensive chronic kidney disease with stage 1 through stage 4 chronic kidney disease, or unspecified chronic kidney disease; N18.9 Chronic kidney disease, unspecified | CPT/HCPCS: A6213; G0463 ==

== ENCOUNTER 2024-02-13 03:10 | Day surgery (SDC) | payer MEDICARE | END 2024-02-13 23:02 | disposition home or self-care (01) | LOC: WOUND 03:10 | DX: L97.312 Non-pressure chronic ulcer of right ankle with fat layer exposed (principal); S90.511D Abrasion, right ankle, subsequent encounter; I12.9 Hypertensive chronic kidney disease with stage 1 through stage 4 chronic kidney disease, or unspecified chronic kidney disease; N18.9 Chronic kidney disease, unspecified; X58.XXXD Exposure to other specified factors, subsequent encounter | CPT/HCPCS: A6213; G0463 ==

== ENCOUNTER 2024-02-20 03:30 | Day surgery (SDC) | payer MEDICARE | END 2024-02-20 22:47 | disposition home or self-care (01) | LOC: WOUND 03:30 | DX: L97.312 Non-pressure chronic ulcer of right ankle with fat layer exposed (principal); S90.511D Abrasion, right ankle, subsequent encounter; X58.XXXD Exposure to other specified factors, subsequent encounter; I12.9 Hypertensive chronic kidney disease with stage 1 through stage 4 chronic kidney disease, or unspecified chronic kidney disease; N18.9 Chronic kidney disease, unspecified | CPT/HCPCS: G0463 ==

== ENCOUNTER 2024-02-27 04:44 | Day surgery (SDC) | payer MEDICARE | END 2024-02-27 23:17 | disposition home or self-care (01) | LOC: WOUND 04:44 | DX: L97.312 Non-pressure chronic ulcer of right ankle with fat layer exposed (principal); N18.9 Chronic kidney disease, unspecified; I10 Essential (primary) hypertension; S90.511D Abrasion, right ankle, subsequent encounter; X58.XXXD Exposure to other specified factors, subsequent encounter | CPT/HCPCS: A6213; G0463 ==

== ENCOUNTER 2024-04-02 02:56 | Day surgery (SDC) | payer MEDICARE | END 2024-04-02 23:01 | disposition home or self-care (01) | LOC: WOUND 02:56 | DX: L97.312 Non-pressure chronic ulcer of right ankle with fat layer exposed (principal); S90.511D Abrasion, right ankle, subsequent encounter; I12.9 Hypertensive chronic kidney disease with stage 1 through stage 4 chronic kidney disease, or unspecified chronic kidney disease; N18.9 Chronic kidney disease, unspecified; X58.XXXD Exposure to other specified factors, subsequent encounter | CPT/HCPCS: A6213; G0463 ==

== ENCOUNTER 2024-04-16 03:53 | Day surgery (SDC) | payer MEDICARE | END 2024-04-16 22:48 | disposition home or self-care (01) | LOC: WOUND 03:53 | DX: L97.312 Non-pressure chronic ulcer of right ankle with fat layer exposed (principal); S90.511D Abrasion, right ankle, subsequent encounter; X58.XXXD Exposure to other specified factors, subsequent encounter; I12.9 Hypertensive chronic kidney disease with stage 1 through stage 4 chronic kidney disease, or unspecified chronic kidney disease; N18.9 Chronic kidney disease, unspecified | CPT/HCPCS: G0463 ==

== ENCOUNTER 2024-04-30 02:11 | Day surgery (SDC) | payer MEDICARE | END 2024-04-30 23:04 | disposition home or self-care (01) | LOC: WOUND 02:11 | DX: L97.312 Non-pressure chronic ulcer of right ankle with fat layer exposed (principal); I73.9 Peripheral vascular disease, unspecified; I10 Essential (primary) hypertension | CPT/HCPCS: G0463 ==

== ENCOUNTER 2024-05-07 03:16 | Day surgery (SDC) | payer MEDICARE | END 2024-05-08 22:47 | disposition home or self-care (01) | LOC: WOUND 03:16 | DX: L97.312 Non-pressure chronic ulcer of right ankle with fat layer exposed (principal); I73.9 Peripheral vascular disease, unspecified; I10 Essential (primary) hypertension | CPT/HCPCS: G0463 ==

== ENCOUNTER 2024-11-21 08:29 | Day surgery (SDC) | payer MEDICARE ==
[~2024-11-21] VITALS: Ht 167.6 cm; Wt 59.1 kg
[~2024-11-21 08:29] MED LIST changes: +Lactated Ringer's 1,000 ML IV SCH; +OXYC5 PO
--- NOTE | 2024-11-21 08:59 | NUR ---
Ambulatory in Day Surgery BUT USES WC FOR LONG DISTANCE Patient confirms NPO status and agrees with scheduled surgery. History, Chart, Medications and Allergies reviewed before start of procedure.Patient States Post-Procedure ride home has been arranged.
[2024-11-21 09:00] VITALS: BP 216/88
[2024-11-21 09:08] VITALS: BP 193/93
[2024-11-21] MEDS ORDERED: Vitamin C100 M1 (09:22)
--- NOTE | 2024-11-21 09:29 | NUR ---
PT REPORTS + PSORIASIS RASH ON BODY AND BUTTOCK
[2024-11-21] MEDS ORDERED: propofoL 60 ML IV ONE (10:08)
--- NOTE | 2024-11-21 10:27 | NUR ---
11/21/24 [address] BROWN; SEE ANESTHESIA RECORDS.
[2024-11-21 10:55] VITALS: BP 117/64
--- NOTE | 2024-11-21 10:56 | NUR ---
REPORT RECEIVED FROM DEAN PRIDE. VSS. PT ON RA. PT ABLE TO REPOSITION SELF IN BED. PT REQUESTING PO FLUIDS AND TOLERATING THEM WELL. PT DENIES PAIN, NAUSEA OR OTHER DISCOMFORTS.
[2024-11-21 11:05] VITALS: BP 129/66
--- NOTE | 2024-11-21 11:17 | NUR ---
Patient up to Ambulate independently. Gait steady. VSS AND CONSISTENT WITH PT BASELINE. PT HAS NO COMPLAINTS AND VERBALIZES READINESS TO GO HOME. Discharge instructions reviewed with patient AND HIS . Patient AND verbalize understanding. Copy given to patient to take home. Patient States Post-Procedure ride home has been arranged. Discharged via wheelchair to private car for ride home. PT BELONGINGS RETURNED TO PT.
== END 2024-11-21 11:16 | disposition home or self-care (01) ==
LOC: ORSCMMR 08:29 → ORD 09:30 → ORSCMMR 09:30
PROVIDERS: Surgery
PROC: 0DJD8ZZ Inspection of Lower Intestinal Tract, Via Natural or Artificial Opening Endoscopic (ICD-10-PCS; principal; 2024-11-21 09:30)
DX: Z12.11 Encounter for screening for malignant neoplasm of colon (principal); K57.30 Diverticulosis of large intestine without perforation or abscess without bleeding; Z86.0101 Personal history of adenomatous and serrated colon polyps; E78.5 Hyperlipidemia, unspecified; I73.9 Peripheral vascular disease, unspecified; I12.9 Hypertensive chronic kidney disease with stage 1 through stage 4 chronic kidney disease, or unspecified chronic kidney disease; N18.9 Chronic kidney disease, unspecified; N25.81 Secondary hyperparathyroidism of renal origin; I42.0 Dilated cardiomyopathy; Z86.73 Personal history of transient ischemic attack (TIA), and cerebral infarction without residual deficits; M06.9 Rheumatoid arthritis, unspecified; L40.50 Arthropathic psoriasis, unspecified; Z79.82 Long term (current) use of aspirin; Z79.899 Other long term (current) drug therapy
CPT/HCPCS: 93005; 93010; J2704; J7120

== ENCOUNTER 2025-01-21 01:48 | Day surgery (SDC) | payer MEDICARE ==
[~2025-01-21 01:48] MED LIST changes: -Lactated Ringer's 1,000 ML IV SCH; +Vitamin C100 M1
== END 2025-01-21 23:00 | disposition home or self-care (01) ==
LOC: WOUND 01:48
DX: L02.416 Cutaneous abscess of left lower limb (principal); I25.10 Atherosclerotic heart disease of native coronary artery without angina pectoris; I13.0 Hypertensive heart and chronic kidney disease with heart failure and stage 1 through stage 4 chronic kidney disease, or unspecified chronic kidney disease; N18.4 Chronic kidney disease, stage 4 (severe); I50.9 Heart failure, unspecified; I73.9 Peripheral vascular disease, unspecified; Z88.8 Allergy status to other drugs, medicaments and biological substances
CPT/HCPCS: G0463

== ENCOUNTER → 2025-01-27 | Day surgery (SDC) | payer MEDICARE | LOC: WOUND 02:36 | DX: L02.416 Cutaneous abscess of left lower limb (principal); S71.102D Unspecified open wound, left thigh, subsequent encounter; X58.XXXD Exposure to other specified factors, subsequent encounter | CPT/HCPCS: G0463 ==

== ENCOUNTER 2025-02-03 04:40 | Day surgery (SDC) | payer MEDICARE | END 2025-02-03 22:57 | disposition home or self-care (01) | LOC: WOUND 04:40 | DX: S71.102A Unspecified open wound, left thigh, initial encounter (principal); L02.416 Cutaneous abscess of left lower limb; N18.9 Chronic kidney disease, unspecified; W19.XXXA Unspecified fall, initial encounter | CPT/HCPCS: G0463 ==

== ENCOUNTER → 2025-02-09 | Outpatient (CLI) | payer MEDICARE ==
[2025-02-09 17:34] LABS: BASOPHILS ABSOLUTE AUTO 0.06 K/mm3 (0.00-0.23); BASOPHILS PERCENT AUTO 1 % (0-2); EOSINOPHILS ABSOLUTE AUTO 0.59 K/mm3 (0.00-0.68); EOSINOPHILS PERCENT AUTO 8 % (0-6); Hematocrit 32.6 % (37.0-53.0); Hemoglobin 10.6 g/dL (13.5-17.5); IMMATURE GRAN ABSOLUTE AUTO 0.04 K/mm3 (0.00-0.10); IMMATURE GRAN PERCENT AUTO 1 % (0-1); LYMPHOCYTES ABSOLUTE AUTO 1.53 K/mm3 (0.84-5.20); LYMPHOCYTES PERCENT AUTO 20 % (21-46); MONOCYTES ABSOLUTE AUTO 0.64 K/mm3 (0.16-1.47); MONOCYTES PERCENT AUTO 8 % (4-13); Mean Corpuscular HGB 31.5 pg (26.0-34.0); Mean Corpuscular HGB Conc 32.5 g/dL (31.5-36.5); Mean Corpuscular Volume 97 fL (80-100); NEUTROPHILS ABSOLUTE AUTO 4.74 K/mm3 (1.96-9.15); NEUTROPHILS PERCENT AUTO 62 % (41-73); Platelet Count 151 K/mm3 (150-400); RDW Coefficient Variation 14.6 % (11.7-14.2); RDW Standard Deviation 51.8 fL (35.1-46.3); Red Blood Cell Count 3.36 M/mm3 (4.30-5.90)
[2025-02-09 17:38] LABS: Mean Platelet Volume 13.9 fL (9.1-12.4)
[2025-02-09 18:25] LABS: Alanine Aminotransfer (ALT/SGP 19 U/L (12-78); Albumin, Blood 3.2 g/dL (3.4-5.0); Albumin/Globulin Ratio 0.9 (0.8-1.8); Alk Phos 96 U/L (50-136); Anion Gap 13 mmol/L (3-11); Aspartate Aminotrans (AST/SGOT 21 U/L (12-37); Bilirubin, Direct 0.1 mg/dL (0.0-0.3); Bilirubin, Indirect 0.3 mg/dL (0.1-0.7); Bilirubin, Total 0.4 mg/dL (0.1-1.0); Blood Urea Nitrogen 61 mg/dL (8-24); Bun/Creatinine Ratio 19.9 (12.0-20.0); CO2, Blood 20 mmol/L (21-32); Calcium, Blood 8.5 mg/dL (8.5-10.1); Chloride, Blood 108 mmol/L (98-108); Cholesterol 116 mg/dL (50-200); Creatinine, Blood 3.06 mg/dL (0.60-1.20); Globulin, Blood 3.5 g/dL (2.2-4.0); Glomerular Filtration Rate 20 (60-); Glucose, Blood 129 mg/dL (70-99); Potassium, Blood 4.8 mmol/L (3.5-5.5); Sodium, Blood 136 mmol/L (136-145); Total Protein, Blood 6.7 g/dL (6.4-8.2); Triglycerides 100 mg/dL (30-160); Very Low Density Lipoprot Chol 20 mg/dL (6-32)
[2025-02-09 18:27] LABS: CHOL/HDL RATIO 2.8; HDL Cholesterol 41 mg/dL (>39); LDL/HDL RATIO 1.3; Low Density Lipoprotein Chol 55 mg/dL (0-110); Prostate Specific Antigen 0.307 ng/mL (0.000-4.000)
== END ==
LOC: LAB 10:35 → LAB SHORT 10:35
PROVIDERS: Nurse Practitioner Family
DX: Z12.5 Encounter for screening for malignant neoplasm of prostate (principal); E55.9 Vitamin D deficiency, unspecified; Z95.5 Presence of coronary angioplasty implant and graft
CPT/HCPCS: 80053; 80061; 82248; 82306; 83970; 85025; G0103

== ENCOUNTER → 2025-02-10 | Day surgery (SDC) | payer MEDICARE | LOC: WOUND 04:43 | DX: Z09 Encounter for follow-up examination after completed treatment for conditions other than malignant neoplasm (principal); Z87.828 Personal history of other (healed) physical injury and trauma | CPT/HCPCS: G0463 ==

== ENCOUNTER → 2025-08-18 | Outpatient (CLI) | payer MEDICARE ==
[2025-08-18 16:01] LABS: BASOPHILS ABSOLUTE AUTO 0.08 K/mm3 (0.00-0.23); BASOPHILS PERCENT AUTO 1 % (0-2); EOSINOPHILS ABSOLUTE AUTO 0.36 K/mm3 (0.00-0.68); EOSINOPHILS PERCENT AUTO 4 % (0-6); Hematocrit 33.2 % (37.0-53.0); Hemoglobin 11.2 g/dL (13.5-17.5); IMMATURE GRAN ABSOLUTE AUTO 0.03 K/mm3 (0.00-0.10); IMMATURE GRAN PERCENT AUTO 0 % (0-1); LYMPHOCYTES ABSOLUTE AUTO 1.88 K/mm3 (0.84-5.20); LYMPHOCYTES PERCENT AUTO 20 % (21-46); MONOCYTES ABSOLUTE AUTO 0.91 K/mm3 (0.16-1.47); MONOCYTES PERCENT AUTO 9 % (4-13); Mean Corpuscular HGB Conc 33.7 g/dL (31.5-36.5); Mean Corpuscular Volume 96 fL (80-100); NEUTROPHILS ABSOLUTE AUTO 6.37 K/mm3 (1.96-9.15); NEUTROPHILS PERCENT AUTO 66 % (41-73); NRBC ABSOLUTE 0.00 K/mm3 (0.00-0.02); NRBC Auto 0.0 /100 WBC (0.0-0.2); Platelet Count 143 K/mm3 (150-400); RDW Coefficient Variation 15.0 % (11.7-14.2); RDW Standard Deviation 51.6 fL (35.1-46.3)
[2025-08-18 16:49] LABS: Alanine Aminotransfer (ALT/SGP 20.0 U/L (12-78); Albumin, Blood 3.3 g/dL (3.4-5.0); Albumin/Globulin Ratio 0.9 (0.8-1.8); Anion Gap 17.0 mmol/L (3-11); Aspartate Aminotrans (AST/SGOT 32.0 U/L (12-37); Bilirubin, Total 0.5 mg/dL (0.1-1.0); Blood Urea Nitrogen 55.0 mg/dL (8-24); CO2, Blood 22.0 mmol/L (21-32); Calcium, Blood 9.5 mg/dL (8.5-10.1); Chloride, Blood 102.0 mmol/L (98-108); Creatinine, Blood 3.7 mg/dL (0.60-1.20); Globulin, Blood 3.7 g/dL (2.2-4.0); Glucose, Blood 139.0 mg/dL (70-99); Potassium, Blood 4.8 mmol/L (3.5-5.5); Sodium, Blood 136.0 mmol/L (136-145); Total Protein, Blood 7.0 g/dL (6.4-8.2)
== END ==
LOC: LAB SHORT 15:56 → LAB 15:56
PROVIDERS: Physician Assistant
DX: R07.89 Other chest pain (principal)
CPT/HCPCS: 80053; 83690; 84484; 85025